=== PATIENT | female | born 1950 | race Caucasian/White ===

== ENCOUNTER 2018-12-03 06:20 | Day surgery (SDC) | payer OTHER ==
[~2018-12-03 06:20] MED LIST: FENOFIBRATE50 MG PO; METFORMIN PO; SYNTHROID125 MCG PO; TELMISARTAN-HC1 EACH PO; ZOCOR20 MG PO; ZYLOPRIM100 M1 PO
== END 2018-12-03 13:20 | disposition home or self-care (01) ==
LOC: CIR.AMB 06:20 → EDBD 08:15 → CIR.AMB 08:15
DX: D24.1 Benign neoplasm of right breast (principal); N60.11 Diffuse cystic mastopathy of right breast

== ENCOUNTER 2023-01-23 06:11 | Day surgery (SDC) | payer OTHER | END 2023-01-23 14:45 | disposition home or self-care (01) | LOC: CIR.AMB 06:11 | PROVIDERS: ATTEND Surgery | DX: C50.812 Malignant neoplasm of overlapping sites of left female breast (principal); I10 Essential (primary) hypertension; Z88.0 Allergy status to penicillin; Z88.2 Allergy status to sulfonamides ==